=== PATIENT | female | born 1970 | race Two or more races ===

== ENCOUNTER 2019-06-04 20:56 | Emergency (ER) | payer SELFPAY ==
[2019-06-04] MEDS ORDERED: NS 0.9% 1000 ML** 1,000 ML IV ONE (21:13)
[2019-06-04] MEDS ORDERED: LORazepam INJ* 2 MG/ML 1 ML VIAL IV PUSH ONE (21:14)
[2019-06-04] MEDS ORDERED: Famotidine IV* 10 MG/ML 2 ML (20 mg) IV SLOW PU ONE (21:14)
[2019-06-04] MEDS ORDERED: Lorazepam PYXIS KEY PRN (21:14)
--- NOTE | 2019-06-04 21:20 | ED ---
Allergic Reaction/Systemic - HPI Summary HPI Summary: This patient is a 48 year old F presenting to [facility] accompanied by with a chief complaint of allergic reaction since prior to arrival. Pt reports she was eating a salad, peanuts and was drinking peanuts at a restaurant when her top lip became very swollen. Then pt took 75 mg of Benadryl and her bottom lip began to swell, her throat started to dry out. Pt has previously has allergic reactions during which her throat closes and has needed to be treated in the ED. Pt is allergic to peaches, mangoes, and kiwis. Pt takes medication for high blood pressure. Home Medications Medication Instructions Recorded Confirmed Type EPINEPHrine [Epipen] 1 kit IM SEE INSTRUCTIONS PRN 06/04/19 06/04/19 History - History of Current Complaint Chief Complaint: EDAllergicReaction Time Seen by Provider: 06/04/19 21:08 Hx Obtained From: Patient Onset/Duration: Sudden Onset, Started minutes ago, Still Present Timing: Constant Severity Currently: None Pain Intensity: 0 Pain Scale Used: 0-10 Numeric Character: Swelling Aggravating Factor(s): Nothing Alleviating Factor(s): Nothing Associated Signs And Symptoms: Positive: Other: - Swelling of lips, dry throat - Allergies/Home Medications Allergies/Adverse Reactions: Allergies Allergy/AdvReac Type Severity Reaction Status Date / Time apricot Allergy Anaphylatic Verified 06/04/19 22:43 Shock gluten Allergy Hives Verified 06/04/19 22:43 kiwi Allergy Anaphylatic Verified 06/04/19 22:43 Shock latex Allergy Anaphylatic Verified 06/04/19 22:43 Shock chencho Allergy Anaphylatic Verified 06/04/19 22:43 Shock peach Allergy Anaphylatic Verified 06/04/19 22:43 Shock pistachio nut Allergy Anaphylatic Verified 06/04/19 22:43 Shock Home Medications: Home Medications EPINEPHrine [Epipen] 1 kit IM SEE INSTRUCTIONS PRN 06/04/19 [History Confirmed 06/04/19] PMH/Surg Hx/FS Hx/Imm Hx Sensory History: Denies: Hx Legally Blind, Hx Deafness EENT History: Denies: Hx Deafness - Surgical History Surgery Procedure, Year, and Place: hysterectomy - Immunization History Immunizations Up to Date: Yes Infectious Disease History: No Infectious Disease History: Denies: Traveled Outside the [place] in Last 30 Days - Family History Known Family History: Positive: Hypertension, Diabetes, Other - cancer - Social History Occupation: Employed Full-time Alcohol Use: Occasionally Substance Use Type: Reports: None Smoking Status (MU): Never Smoked Tobacco Review of Systems Negative: Fever Positive: Other - lip swelling, dry throat Positive: Anxious All Other Systems Reviewed And Are Negative: Yes Physical Exam - Summary Physical Exam Summary: Appearance: Obese women, laying on stretcher, anxious and hyper ventilating, but not in any respiratory distress Skin: Warm, dry, no obvious rash Eyes: sclera anicteric, no conjunctival pallor HENT: mucous membranes moist, pharynx appears normal; No stridor, no lingual swelling; Neck: Supple, nontender Respiratory: Clear to auscultation, no signs of respiratory distress; No wheezing Cardiovascular: Normal S1, S2. No murmurs. Normal distal pulses in tibial and radial bilaterally. Abdomen: Soft, nontender, normal active bowel sounds present Musculoskeletal: Normal, Strength/ROM Intact Neurological: A&Ox3, awake and alert, mentation is normal, speech is fluent and appropriate Psychiatric: affect is normal, does not appear anxious or depressed Triage Information Reviewed: Yes Vital Signs On Initial Exam: Initial Vitals Temp Pulse Resp BP Pulse Ox 97.9 F 85 20 155/96 99 06/04/19 20:58 06/04/19 20:58 06/04/19 20:58 06/04/19 20:58 06/04/19 20:58 Vital Signs Reviewed: Yes Procedures - Sedation Patient Received Moderate/Deep Sedation with Procedure: No Diagnostics - Vital Signs Vital Signs Temp Pulse Resp BP Pulse Ox 06/04/19 20:58 97.9 F 85 20 155/96 99 - Laboratory Lab Statement: Any lab studies that have been ordered have been reviewed, and results considered in the medical decision making process. Re-Evaluation - Re-Evaluation First Eval Re-Evaluation Time: 23:56 Comment: Pt is feeling better. Allergic Reaction Course/Dx - Course Course Of Treatment: This patient is a 48 year old F presenting to [facility] accompanied by with a chief complaint of allergic reaction since prior to arrival. Pt reports she was eating a salad, peanuts and was drinking peanuts at a restaurant when her top lip became very swollen. Then pt took 75 mg of Benadryl and her bottom lip began to swell, her throat started to dry out. Pt has previously has allergic reactions during which her throat closes and has needed to be treated in the ED. Pt is allergic to peaches, mangoes, and kiwis. Physical Exam Findings are nml except pt is obese, women lying on stretcher, anxious and hyper ventilating, but not in any respiratory distress. No stridor, no lingual swelling. No wheezing. In the ED course the patient was given famotidine, fluids, and Lorazepam. Patient will be discharged. The patient is agreeable with this plan. - Diagnoses Provider Diagnoses: Allergic reaction Discharge ED - Sign-Out/Discharge Documenting (check all that apply): Patient Departure - [place] - Discharge Plan Condition: Improved Disposition: HOME Patient Education Materials: General Allergic Reaction (ED) Referrals: Care [facility] [Outside] - If Needed Additional Instructions: If you develop recurrent symptoms the mainstay of treatment is anti histamines, either benadryl, claritin or others. Sometimes symptoms will wax and wane before burning out over a few days. - Billing Disposition and Condition Condition: IMPROVED Disposition: Home - Attestation Statements Document Initiated by Ashlyibe: Yes Documenting Scribe: Jia Wilkinson Provider For Whom Ashlyibe is Documenting (Include Credential): Ubaldo Rowell MD Scribe Attestation: Jia Chavez scribed for Ubaldo Rowell MD on 06/05/19 at 0427. Scribe Documentation Reviewed: Yes Provider Attestation: The documentation as recorded by the Jia gallardo accurately reflects the service I personally performed and the decisions made by me, Ubaldo Rowell MD Status of Scribe Document: Viewed
[2019-06-04] MEDS ORDERED: Lorazepam PYXIS KEY ONE (21:24)
[2019-06-05 00:01] VITALS: BP 97/62
== END 2019-06-05 | disposition home or self-care (01) ==
LOC: ED 20:56
DX: T78.40XA Allergy, unspecified, initial encounter (principal); X58.XXXA Exposure to other specified factors, initial encounter; R60.9 Edema, unspecified; F41.9 Anxiety disorder, unspecified
CPT/HCPCS: 96361; 96374; 96375; 99282; J2060